=== PATIENT | female | born 1990 | race Caucasian/White ===

== ENCOUNTER 2020-03-01 14:39 | Outpatient (CLI) | payer OTHER, SELFPAY ==
[2020-03-01] VITALS (7 sets, daily range): BP systolic 143–157; BP diastolic 91–98; PULSE 115–139; TEMP 37; BMI 33.0
--- NOTE | 2020-03-01 16:09 | PC.NURSE ---
Dr. Marques called to check on pt. Informed of BP's, lab results not back yet. Informed NST was reactive, pt had a couple of contractions initially that resolved with drinking water and emptying bladder. Informed of relexes with sustained clonus. Pt denies headache, visual disturbance, epigastric/RUQ pain. No edema.
[2020-03-01 16:11] LABS: Basophils Percent Auto 0.3 % (0.2-1.2); Eosinophils Absolute Auto 0.1 K/mm3 (0-0.3); Eosinophils Percent Auto 0.7 % (0-4.4); Hematocrit 31.6 % (37.0-47.0); Hemoglobin 9.9 g/dL (12.0-15.0); Immature Granulocyte Absolute 0.04 K/mm3 (0.00-0.031); Immature Granulocyte Percent A 0.5 % (0-0.5); Lymphocytes Absolute Auto 1.09 K/mm3 (0.9-3.2); Lymphocytes Percent Auto 14.9 % (18.3-44.2); Mean Corpuscular HGB Conc 31.3 g/dl (32-36); Mean Corpuscular Hemoglobin 23.8 pg (26-34); Mean Platelet Volume 12.5 fl (7.4-10.4); Monocytes Absolute Auto 0.6 K/mm3 (0.1-0.6); Monocytes Percent Auto 8.1 % (2.6-8.5); Neutrophils Absolute Auto 5.5 K/mm3 (1.3-6.7); Neutrophils Percent Auto 75.5 % (45.5-73.1); Platelet Count Result 195 k/mm3 (150-375); Red Blood Count 4.16 M/mm3 (4.2-5.4); Red Cell Distribution Width 15.2 % (11.5-14.5); White Blood Count 7.3 K/mm3 (4.5-10.0)
[2020-03-01 16:19] LABS: Creatinine Urine 48.5 mg/dL; Total Protein Urine Random 13 mg/dL
[2020-03-01 16:27] LABS: Alanine Aminotransferase 37 U/L (4-35); Albumin Level 3.5 g/dL (3.5-5.1); Alkaline Phosphatase 212 U/L (38-126); Aspartate Amino Transferase 34 U/L (14-36); Bilirubin,Total 0.4 mg/dL (0.2-1.3); Blood Urea Nitrogen 4 mg/dL (7-17); Calcium 9.5 mg/dL (8.4-10.2); Carbon Dioxide 20 mmol/L (22-30); Chloride 107 mmol/L (98-107); Estimated CRCL calculation 153 ml/min; Estimated Glomerular Filt Rate > 60; Glucose 84 mg/dL (65-105); Potassium 4.4 mmol/L (3.4-5.0); Sodium 132 mmol/L (137-145); Uric Acid 3.3 mg/dL (2.5-7.5)
[2020-03-01 16:32] LABS: Add Urine Microscopic? YES; Amorphous Sediment Urine Few; Appearance Urine Clear (Clear); Bacteria Urine Trace /hpf; Bilirubin Urine Negative (Negative); Blood Urine Negative (Negative); Color Urine Yellow (Yellow); Glucose Urine UA Negative (Negative); Ketones Urine 1+ mg/dL (Negative); Leukocyte Esterase Ur 1+ LEU/UL (Negative); Mucus Urine Rare /lpf; Nitrate Urine Negative (Negative); Protein Urine Negative (Negative); RBC Urine 0-2 /hpf (0-2); Specific Grav Ur 1.012 (1.001-1.035); Squamous Epithelial Cell Urine Moderate /hpf (Few); Urobilinogen Urine Negative mg/dL (<2.0)
--- NOTE | 2020-03-01 16:38 | PC.NURSE ---
Dr. Marques informed of lab results, updated on BP's, and reflexes still brisk with sustained clonus. Orders received for discharge and sending pt home to start taking Procardia XL in am.
== END 2020-03-01 17:10 | disposition home or self-care (01) ==
LOC: ANHOBOP 14:47 → ANHOBPP 14:48
PROVIDERS: PCP Family Medicine; Visit Provider Obstetrics & Gynecology
DX: O13.9 Gestational [pregnancy-induced] hypertension without significant proteinuria, unspecified trimester (principal)
CPT/HCPCS: 36415; 59025; 80053; 81001; 82570; 84156; 84550; 85025; 99199

== ENCOUNTER 2020-03-12 13:31 | Outpatient (CLI) | payer OTHER, SELFPAY ==
[2020-03-12] VITALS (10 sets, daily range): BP systolic 146–155; BP diastolic 90–96; PULSE 98–101; TEMP 36.6
[2020-03-12 14:56] LABS: Basophils Percent Auto 0.3 % (0.2-1.2); Eosinophils Absolute Auto 0.1 K/mm3 (0-0.3); Eosinophils Percent Auto 0.9 % (0-4.4); Hematocrit 28.7 % (37.0-47.0); Hemoglobin 8.8 g/dL (12.0-15.0); Immature Granulocyte Absolute 0.04 K/mm3 (0.00-0.031); Immature Granulocyte Percent A 0.6 % (0-0.5); Lymphocytes Absolute Auto 1.07 K/mm3 (0.9-3.2); Mean Corpuscular HGB Conc 30.7 g/dl (32-36); Mean Corpuscular Hemoglobin 23.3 pg (26-34); Mean Corpuscular Volume 76.1 fl (80-100); Mean Platelet Volume 12.6 fl (7.4-10.4); Monocytes Absolute Auto 0.5 K/mm3 (0.1-0.6); Monocytes Percent Auto 6.7 % (2.6-8.5); Neutrophils Absolute Auto 5.1 K/mm3 (1.3-6.7); Neutrophils Percent Auto 75.5 % (45.5-73.1); Platelet Count Result 181 k/mm3 (150-375); Red Blood Count 3.77 M/mm3 (4.2-5.4); Red Cell Distribution Width 15.9 % (11.5-14.5); White Blood Count 6.7 K/mm3 (4.5-10.0)
[2020-03-12 15:00] LABS: Add Urine Microscopic? YES; Appearance Urine Clear (Clear); Bacteria Urine Trace /hpf; Bilirubin Urine Negative (Negative); Blood Urine Negative (Negative); Color Urine Yellow (Yellow); Glucose Urine UA Negative (Negative); Ketones Urine Negative (Negative); Leukocyte Esterase Ur 1+ LEU/UL (NEGATIVE); Mucus Urine Rare /lpf; Nitrate Urine Negative (Negative); Protein Urine 2+ mg/dL (Negative); RBC Urine 0-2 /hpf (0-2); Specific Grav Ur 1.026 (1.001-1.035); Squamous Epithelial Cell Urine Many /hpf (Few)
[2020-03-12 15:05] LABS: Creatinine Urine 194.9 mg/dL; Total Protein Urine Random 41 mg/dL
[2020-03-12 15:09] LABS: Alanine Aminotransferase 67 U/L (4-35); Albumin Level 3.2 g/dL (3.5-5.1); Alkaline Phosphatase 220 U/L (38-126); Aspartate Amino Transferase 44 U/L (14-36); Bilirubin,Total 0.4 mg/dL (0.2-1.3); Blood Urea Nitrogen 7 mg/dL (7-17); Calcium 8.9 mg/dL (8.4-10.2); Carbon Dioxide 22 mmol/L (22-30); Chloride 109 mmol/L (98-107); Estimated Glomerular Filt Rate > 60; Glucose 87 mg/dL (65-105); Sodium 136 mmol/L (137-145); Uric Acid 4.8 mg/dL (2.5-7.5)
[2020-03-12] MEDS: BETAMETHASONE SOD PHOS/ACETATE 30 MG/5 ML VIAL 12 MG IM (16:34)
--- NOTE | 2020-03-12 17:06 | PC.NURSE ---
1610--uPDATED DR. SILVA ON LAB RESULTS AND BP'S. FEBRUARY DC TO HOME WITH FOLLOW-UP IN OFFICE ON WEDNESDAY AND SECOND INJECTION OF BETAMETHASONE ON WEDNESDAY.
== END 2020-03-12 16:35 | disposition home or self-care (01) ==
LOC: ANHOBOP 13:38 → ANHOBPP 13:41
PROVIDERS: PCP Family Medicine; Visit Provider Obstetrics & Gynecology
DX: O13.9 Gestational [pregnancy-induced] hypertension without significant proteinuria, unspecified trimester (principal); Z3A.00 Weeks of gestation of pregnancy not specified
CPT/HCPCS: 36415; 80053; 81001; 82570; 84156; 84550; 85025; 87086; 87088; 96372; 99199; J0702

== ENCOUNTER 2020-03-13 16:25 | Outpatient (CLI) | payer OTHER, SELFPAY ==
[2020-03-13] MEDS: BETAMETHASONE SOD PHOS/ACETATE 30 MG/5 ML VIAL 12 MG IM (16:46)
== END 2020-03-13 16:26 | disposition home or self-care (01) ==
LOC: ANHOBOP 16:31
PROVIDERS: PCP Family Medicine; Visit Provider Obstetrics & Gynecology
DX: Z34.90 Encounter for supervision of normal pregnancy, unspecified, unspecified trimester (principal); Z3A.00 Weeks of gestation of pregnancy not specified
CPT/HCPCS: 96372; J0702

== ENCOUNTER 2020-03-14 14:14 | Inpatient (IN) | payer OTHER, SELFPAY ==
[2020-03-14] VITALS (84 sets, daily range): BP systolic 132–175; BP diastolic 77–110; PULSE 87–125; RESP 18; TEMP 36.8–36.9; O2SAT 98–100; BMI 32.8
[2020-03-14 15:08] LABS: Basophils Percent Auto 0.2 % (0.2-1.2); Eosinophils Percent Auto 0.1 % (0-4.4); Hematocrit 29.4 % (37.0-47.0); Hemoglobin 9.2 g/dL (12.0-15.0); Immature Granulocyte Absolute 0.15 K/mm3 (0.00-0.031); Immature Granulocyte Percent A 1.3 % (0-0.5); Mean Corpuscular HGB Conc 31.3 g/dl (32-36); Mean Corpuscular Hemoglobin 23.7 pg (26-34); Mean Corpuscular Volume 75.8 fl (80-100); Mean Platelet Volume 12.8 fl (7.4-10.4); Monocytes Absolute Auto 1.1 K/mm3 (0.1-0.6); Monocytes Percent Auto 9.3 % (2.6-8.5); Neutrophils Absolute Auto 8.8 K/mm3 (1.3-6.7); Neutrophils Percent Auto 76.1 % (45.5-73.1); Nucleated Red Blood Cells Perc 0.3 % (0.0-0.2); Platelet Count Result 214 k/mm3 (150-375); Red Blood Count 3.88 M/mm3 (4.2-5.4); Red Cell Distribution Width 16.1 % (11.5-14.5); White Blood Count 11.5 K/mm3 (4.5-10.0)
[2020-03-14 15:14] LABS: Creatinine Urine 97.4 mg/dL; Total Protein Urine Random 53 mg/dL
[2020-03-14 15:19] LABS: Add Urine Microscopic? YES; Alanine Aminotransferase 102 U/L (4-35); Albumin Level 3.5 g/dL (3.5-5.1); Alkaline Phosphatase 221 U/L (38-126); Appearance Urine Clear (Clear); Aspartate Amino Transferase 70 U/L (14-36); Bacteria Urine Trace /hpf; Bilirubin Urine Negative (Negative); Bilirubin,Total 0.4 mg/dL (0.2-1.3); Blood Urea Nitrogen 8 mg/dL (7-17); Blood Urine Negative (Negative); Calcium 9.2 mg/dL (8.4-10.2); Carbon Dioxide 20 mmol/L (22-30); Chloride 108 mmol/L (98-107); Color Urine Yellow (Yellow); Estimated Glomerular Filt Rate > 60; Glucose 97 mg/dL (65-105); Glucose Urine UA Negative (Negative); Ketones Urine Negative (Negative); Leukocyte Esterase Ur 1+ LEU/UL (Negative); Nitrate Urine Negative (Negative); Potassium 4.1 mmol/L (3.4-5.0); Protein Urine 2+ mg/dL (Negative); RBC Urine 0-2 /hpf (0-2); Sodium 136 mmol/L (137-145); Specific Grav Ur 1.018 (1.001-1.035); Squamous Epithelial Cell Urine Few /hpf (Few); Uric Acid 4.7 mg/dL (2.5-7.5); Urobilinogen Urine Negative mg/dL (<2.0); WBC Urine 0-3 /hpf
--- NOTE | 2020-03-14 16:53 | PM.IMHP ---
H&P: HPI History of Present Illness Chief complaint: elevated bp Narrative: Ana María Velasquez is a 30 year old female 2 para 1001 at 34 weeks and 6 days who presents with severe range blood pressures. She was being followed for her blood pressures. She had signs and symptoms preeclampsia. She received steroids. She denies any neurologic signs or symptoms. She denies any headache, blurry vision, epigastric pain. She denies any chest pain or shortness of breath. She denies any nausea, vomiting, fever, chills. Review of Systems Constitutional: Constitutional: Reports no additional constitutional complaints, Denies fatigue, Denies headache(s), Denies lethargy and Denies weakness Eyes: Eyes: Reports no additional eye complaints, Denies blurry vision and Denies photophobia ENT: Reports as per HPI, Denies headache(s) and Denies neck pain Cardiovascular: Cardiovascular: Denies chest pain, Denies diaphoresis, Denies leg edema, Denies palpitations and Denies dyspnea Respiratory: Respiratory: Denies hemoptysis, Denies dyspnea and Denies wheezing Gastrointestinal: Gastrointestinal: Denies abdominal pain, Denies melena, Denies bloating, Denies hematochezia, Denies nausea and Denies vomiting Genitourinary: Genitourinary: Reports no additional female genitourinary complaints Musculoskeletal: Musculoskeletal: Denies joint swelling, Denies neck pain, Denies numbness and Denies stiffness Neurologic: Denies Abnormal speech present, Denies confusion, Denies headache(s), Denies numbness and Denies weakness Psychiatric: Psychiatric: Denies anxiety, Denies confusion, Denies depression, Denies homicidal ideation and Denies suicidal ideation Endocrine: Endocrine: Denies fatigue and Denies palpitations Allergic/Immunologic: Allergic/Immunologic: Denies wheezing [facility] Surgical History Surgical History (Updated 09/22/19 @ 19:31 by BETH King) H/O LEEP History of appendectomy Social History Social History Smoking status: Never smoker Alcohol intake: never Meds Home Medications and Allergies Home Medications Medication Instructions Recorded Confirmed Type PNV cmb#95-ferrous fumarate-FA 1 tablet PO DAILY 03/01/20 03/01/20 History [] nifedipine [Procardia XL] 30 mg PO DAILY #30 tablet 03/01/20 Rx Allergies Allergy/AdvReac Type Severity Reaction Status Date / Time amoxicillin Allergy Unknown Rash Verified 03/01/20 16:32 ampicillin Allergy Unknown Rash Verified 03/01/20 16:32 Penicillins Allergy Unknown Rash Verified 03/01/20 16:32 Vital Signs Vital Signs - 24 hr 03/14/20 14:31 03/14/20 14:40 03/14/20 14:51 Pulse Rate 118 H 109 H 114 H Blood Pressure 151/105 H 158/104 H Blood Pressure [Left Arm] 151/105 H 03/14/20 15:00 03/14/20 15:15 03/14/20 15:30 Pulse Rate 117 H 117 H 105 H Blood Pressure 169/105 H 156/99 H 154/97 H Blood Pressure [Left Arm] 03/14/20 15:45 03/14/20 16:00 03/14/20 16:15 Pulse Rate 112 H 123 H 124 H Blood Pressure 152/98 H 169/110 H 175/102 H Blood Pressure [Left Arm] 03/14/20 16:30 Pulse Rate 116 H Blood Pressure 163/99 H Blood Pressure [Left Arm] Exam Const: General: healthy appearing, comfortable and no acute distress; No confusion Orientation/consciousness: No confusion Eyes: Direct Ophthalmoscopy: No photophobia Resp: Auscultation: clear to auscultation bilaterally, no rales, no rhonchi and no wheezes Cardio: Rate: regular rate Heart sounds: no click, no murmurs and no rubs GI: Inspection: non-distended GI Palp: No abdominal tenderness Auscultation: normal bowel sounds Neuro: General: No confusion Speech: No Abnormal speech present Extrem: General: normal to inspection, no pedal edema and no calf tenderness H&P: Results Labs Labs: Short CBC 03/14/20 Range/Units 14:49 WBC 11.5 H (4.5-10.0) K/mm3 Hgb 9.2 L (12.0-15.0) g/dL Hct
[2020-03-14 17:00] LABS: Glucose Point of Care 90 (65-105)
[2020-03-14] MEDS: LACTATED RINGERS 1,000 ML 75 ML IV CONT (17:12)
--- NOTE | 2020-03-14 17:15 | LDADM ---
This patient, Ana María Velasquez, was admitted to OB room 117 at 1414 and moved to Labor/Delivery/Recovery 107 on 03/14/20 at 1635. Plans for labor, pain management and were discussed with patient. Patient/family oriented to hospital policies and general routines including ID bracelet, bed and alarms, visiting hours, pain management, procedures, bathroom and other care routines, personal items, smoking policy, room service/diet and guest tray routines, security routines, and visiting hours. Patient/Family are encouraged to report perceived risks to care and to ask questions if they do not understand what they are told or what they should do. See OBIX for further documentation.
[2020-03-14] MEDS: MAGNESIUM SULF 4 GM/WATER100ML 4 GM/100 ML BAG IVPB (17:19)
[2020-03-14] MEDS: MAGNESIUM SULF 20GM/WATER500ML 500 ML 50 MG IV CONT (17:59)
[2020-03-14] MEDS: OXYTOCIN 30 UNITS/NS 500 ML 30 UNITS/500 ML BAG IV CONT (18:31)
--- NOTE | 2020-03-14 18:49 | WPDANESEPP ---
Anes - Eval Pre Procedure Procedure: Labor epidural Date/Time: 03/14/20 18:49 Surgeon: ekta Preop Diagnosis: pain during labor Pre Op Diagnosis: elevated bp Patient Data Age: 30 Gender: F Height: 1.65 m Weight: 89.6 kg Last Vital Signs Temp 36.9 C 03/14/20 18:30 Pulse 101 H 03/14/20 18:46 BP 155/98 H 03/14/20 18:46 Allergies Allergy/AdvReac Type Severity Reaction Status Date / Time amoxicillin Allergy Unknown Rash Verified 03/01/20 16:32 ampicillin Allergy Unknown Rash Verified 03/01/20 16:32 Penicillins Allergy Unknown Rash Verified 03/01/20 16:32 Home Medications Medication Instructions Recorded Confirmed Type PNV cmb#95-ferrous fumarate-FA 1 tablet PO DAILY 03/01/20 03/14/20 History [] labetalol 200 mg PO Q12H 03/14/20 03/14/20 History Laboratory Tests 03/14/20 03/14/20 03/14/20 14:49 14:49 14:49 WBC 11.5 K/mm3 H K/mm3 (4.5-10.0) RBC 3.88 M/mm3 L M/mm3 (4.2-5.4) Hgb 9.2 g/dL L g/dL (12.0-15.0) Hct 29.4 % L % (37.0-47.0) MCV 75.8 fl L fl (80-100) MCH 23.7 pg L pg (26-34) MCHC 31.3 g/dl L g/dl (32-36) RDW 16.1 % H % (11.5-14.5) Plt Count 214 k/mm3 k/mm3 (150-375) MPV 12.8 fl H fl (7.4-10.4) Immature Gran % (Auto) 1.3 % H % (0-0.5) Neut % (Auto) 76.1 % H % (45.5-73.1) Lymph % (Auto) 13.0 % L % (18.3-44.2) [place] % (Auto) 9.3 % H % (2.6-8.5) Eos % (Auto) 0.1 % % (0-4.4) Baso % (Auto) 0.2 % % (0.2-1.2) Lymph # (Auto) 1.50 K/mm3 K/mm3 (0.9-3.2) [place] # (Auto) 1.1 K/mm3 H K/mm3 (0.1-0.6) Eos # (Auto) 0.0 K/mm3 K/mm3 (0-0.3) Baso # (Auto) 0.0 K/mm3 K/mm3 (0.0-0.1) Abs Immat Gran (auto) 0.15 K/mm3 H K/mm3 (0.00-0.031) Absolute Neuts (auto) 8.8 K/mm3 H K/mm3 (1.3-6.7) Absolute Nucleated RBC 0.0 K/mm3 K/mm3 (0.0-0.012) Nucleated RBC % 0.3 % H % (0.0-0.2) Sodium 136 mmol/L L mmol/L (137-145) Potassium 4.1 mmol/L mmol/L (3.4-5.0) Chloride 108 mmol/L H mmol/L (98-107) Carbon Dioxide 20 mmol/L L mmol/L (22-30) BUN 8 mg/dL mg/dL (7-17) Creatinine 0.50 mg/dL L mg/dL (0.7-1.0) Estim Creat Clear Calc Not Reportable Estimated GFR > 60 (59 - ) Glucose 97 mg/dL mg/dL (65-105) POC Capillary Glucose Uric Acid 4.7 mg/dL mg/dL (2.5-7.5) Calcium 9.2 mg/dL mg/dL (8.4-10.2) Total Bilirubin 0.4 mg/dL mg/dL (0.2-1.3) AST 70 U/L H U/L (14-36) ALT 102 U/L H U/L (4-35) Alkaline Phosphatase 221 U/L H U/L (38-126) Total Protein 7.0 g/dL g/dL (6.3-8.2) Albumin 3.5 g/dL g/dL (3.5-5.1) Urine Color Urine Appearance Urine pH Ur Specific [place] Urine Protein Urine Glucose (UA) Urine Ketones Ur Blood (Man) Urine Nitrate Urine Bilirubin Urine Urobilinogen Leukocyte Esterase Rfl Urine RBC Urine WBC Ur Squamous Epith Cells Urine Bacteria U Random Total Protein 53 mg/dL mg/dL Urine Creatinine 97.4 mg/dL mg/dL RPR Blood Type Antibody Screen 03/14/20 03/14/20 03/14/20 14:49 14:49 14:49 WBC RBC Hgb Hct MCV MCH MCHC RDW Plt Count MPV Immature Gran % (Auto) Neut % (Auto) Lymph % (Auto) [place] % (Auto) Eos % (Auto) Baso % (Auto) Lymph # (Auto) [place] # (Auto) Eos
[2020-03-14] MEDS: LABETALOL HCL 100 MG TABLET 200 MG PO (21:02)
[2020-03-14 21:12] LABS: Glucose Point of Care 78 (65-105)
[2020-03-15] VITALS (188 sets, daily range): BP systolic 112–170; BP diastolic 29–111; PULSE 27–131; RESP 16–20; TEMP 36.5–37.6; O2SAT 88–100
[2020-03-15 02:02] LABS: Glucose Point of Care 75 (65-105)
[2020-03-15] MEDS: MAGNESIUM SULF 20GM/WATER500ML 500 ML 50 MG IV CONT (04:04)
[2020-03-15 05:55] LABS: Glucose Point of Care 94 (65-105)
--- NOTE | 2020-03-15 07:29 | PM.OBPNVD ---
OB - PN: Subj Subjective Date/time seen: 03/15/20 07:29 OB - PN: Obj Data Labs CBC & Chem 7: 03/14/20 14:49 03/14/20 14:49 Labs: Laboratory Results - last 24 hr 03/14/20 03/14/20 03/14/20 14:49 14:49 14:49 WBC 11.5 H RBC 3.88 L Hgb 9.2 L Hct 29.4 L MCV 75.8 L MCH 23.7 L MCHC 31.3 L RDW 16.1 H Plt Count 214 MPV 12.8 H Immature Gran % (Auto) 1.3 H Neut % (Auto) 76.1 H Lymph % (Auto) 13.0 L [place] % (Auto) 9.3 H Eos % (Auto) 0.1 Baso % (Auto) 0.2 Lymph # (Auto) 1.50 [place] # (Auto) 1.1 H Eos # (Auto) 0.0 Baso # (Auto) 0.0 Abs Immat Gran (auto) 0.15 H Absolute Neuts (auto) 8.8 H Absolute Nucleated RBC 0.0 Nucleated RBC % 0.3 H Sodium 136 L Potassium 4.1 Chloride 108 H Carbon Dioxide 20 L BUN 8 Creatinine 0.50 L Estim Creat Clear Calc Not Reportable Estimated GFR > 60 Glucose 97 POC Capillary Glucose Uric Acid 4.7 Calcium 9.2 Total Bilirubin 0.4 AST 70 H ALT 102 H Alkaline Phosphatase 221 H Total Protein 7.0 Albumin 3.5 Urine Color Urine Appearance Urine pH Ur Specific [place] Urine Protein Urine Glucose (UA) Urine Ketones Ur Blood (Man) Urine Nitrate Urine Bilirubin Urine Urobilinogen Leukocyte Esterase Rfl Urine RBC Urine WBC Ur Squamous Epith Cells Urine Bacteria U Random Total Protein 53 Urine Creatinine 97.4 Blood Type Antibody Screen 03/14/20 03/14/20 03/14/20 14:49 14:49 16:57 WBC RBC Hgb Hct MCV MCH MCHC RDW Plt Count MPV Immature Gran % (Auto) Neut % (Auto) Lymph % (Auto) [place] % (Auto) Eos % (Auto) Baso % (Auto) Lymph # (Auto) [place] # (Auto) Eos # (Auto) Baso # (Auto) Abs Immat Gran (auto) Absolute Neuts (auto) Absolute Nucleated RBC Nucleated RBC % Sodium Potassium Chloride Carbon Dioxide BUN Creatinine Estim Creat Clear Calc Estimated GFR Glucose POC Capillary Glucose 90 Uric Acid Calcium Total Bilirubin AST ALT Alkaline Phosphatase Total Protein Albumin Urine Color Yellow Urine Appearance Clear Urine pH 7.0 Ur Specific [place] 1.018 Urine Protein 2+ H Urine Glucose (UA) Negative Urine Ketones Negative Ur Blood (Man) Negative Urine Nitrate Negative Urine Bilirubin Negative Urine Urobilinogen Negative Leukocyte Esterase Rfl 1+ H Urine RBC 0-2 Urine WBC 0-3 Ur Squamous Epith Cells Few Urine Bacteria Trace U Random Total Protein Urine Creatinine Blood Type A Positive Antibody Screen Negative 03/14/20 03/15/20 03/15/20 21:08 01:00 05:53 WBC RBC Hgb Hct MCV MCH MCHC RDW Plt Count MPV Immature Gran % (Auto) Neut % (Auto) Lymph % (Auto) [place] % (Auto) Eos % (Auto) Baso % (Auto) Lymph # (Auto) [place] # (Auto) Eos # (Auto) Baso # (Auto) Abs Immat Gran (auto) Absolute Neuts (auto) Absolute Nucleated RBC Nucleated RBC % Sodium Potassium Chloride Carbon Dioxide BUN Creatinine Estim Creat Clear Calc Estimated GFR Glucose POC Capillary Glucose 78 75 94 Uric Acid Calcium Total Bilirubin AST ALT Alkaline Phosphatase Total Protein Albumin Urine Color Urine Appearance Urine pH Ur Specific [place] Urine Protein Urine Glucose (UA) Urine Ketones Ur Blood (Man) Urine Nitrate Urine Bilirubin Urine Urobilinogen Leukocyte Esterase Rfl Urine RBC Urine WBC Ur Squamous Epith Cells Urine Bacteria U Random Total Protein Urine Creatinine Blood Type Antibody Screen OB - PN A/P Time Spent With Patient Time: Total time spent is greater than 50% in coordinatio
[2020-03-15] MEDS: LACTATED RINGERS 1,000 ML 75 ML IV CONT ×2 (07:43→09:24)
[2020-03-15] MEDS: LABETALOL HCL 100 MG TABLET 200 MG PO ×2 (09:07→21:05)
[2020-03-15 09:41] LABS: Glucose Point of Care 82 (65-105)
[2020-03-15 09:56] LABS: Hematocrit 30.8 % (37.0-47.0); Hemoglobin 9.6 g/dL (12.0-15.0); Mean Corpuscular HGB Conc 31.2 g/dl (32-36); Mean Corpuscular Hemoglobin 23.2 pg (26-34); Mean Corpuscular Volume 74.6 fl (80-100); Mean Platelet Volume 12.1 fl (7.4-10.4); Platelet Count Result 212 k/mm3 (150-375); Red Blood Count 4.13 M/mm3 (4.2-5.4); Red Cell Distribution Width 16.2 % (11.5-14.5); White Blood Count 12.1 K/mm3 (4.5-10.0)
[2020-03-15 10:08] LABS: Alanine Aminotransferase 214 U/L (4-35); Albumin Level 3.6 g/dL (3.5-5.1); Alkaline Phosphatase 256 U/L (38-126); Aspartate Amino Transferase 135 U/L (14-36); Bilirubin,Total 0.5 mg/dL (0.2-1.3); Blood Urea Nitrogen 5 mg/dL (7-17); Calcium 7.4 mg/dL (8.4-10.2); Carbon Dioxide 20 mmol/L (22-30); Chloride 102 mmol/L (98-107); Estimated CRCL calculation 130 ml/min; Estimated Glomerular Filt Rate > 60; Glucose 85 mg/dL (65-105); Potassium 3.6 mmol/L (3.4-5.0); Sodium 133 mmol/L (137-145); Uric Acid 5.1 mg/dL (2.5-7.5)
--- NOTE | 2020-03-15 10:11 | P.PCNOB_ITS ---
OB - Delivery Note Procedure Delivery date: 03/15/20 Procedure: vaginal delivery events: Gestational Diabetes and Pre-Eclampsia Induction method: AROM and per pitocin protocol Delivery monitor: external FHT and external uterine Route of delivery: Laceration description: None Specimen: Yes Estimated blood loss (mL): 175 Anesthesia type: Epidural Disposition: other () Narrative: hx of hemorrhage after last delivery, bleeding wnl, placed 1000mcg cytotec rectally due to hx [place] Baby Date of : 03/15/20 Time of : 10:01 Weeks of gestation at delivery: 35 gender: Female Weight (pounds): 4 Weight (ounces): 15 presentation: vertex position: Right Occiput Posterior Placenta delivery description: Spontaneous cord vessel description: 3 Vessels and Clamped/Cut score one minute: 6 score five minutes: 8
[2020-03-15] MEDS: OXYTOCIN 30 UNITS/NS 500 ML 30 UNITS/500 ML BAG 125 UNITS IV CONT (10:21)
[2020-03-15] MEDS: MISOPROSTOL 200 MCG TABLET 1000 MCG (10:22)
[2020-03-15 11:20] LABS: Rapid Plasma Reagin Non-Reactive (NonReactive)
[2020-03-15] MEDS: WITCH HAZEL 40 PADS 1 PAD TOPICAL (12:34)
--- NOTE | 2020-03-15 13:00 | PC.NURSE ---
Patient transferred to room #282 per wheelchair from labor and delivery. Support person present. Oriented to unit, room, information board, rooming in, admission packet and security measures. Patient verbalizes understanding.
[2020-03-15 15:08] LABS: Magnesium 5.6 mg/dL (1.6-2.3)
[2020-03-16] VITALS (8 sets, daily range): BP systolic 136–155; BP diastolic 90–102; PULSE 78–97; RESP 16–20; TEMP 36.8–37; O2SAT 100
[2020-03-16 04:11] LABS: Hematocrit 31.5 % (37.0-47.0); Hemoglobin 9.8 g/dL (12.0-15.0); Mean Corpuscular HGB Conc 31.1 g/dl (32-36); Mean Corpuscular Hemoglobin 23.3 pg (26-34); Mean Platelet Volume 12.8 fl (7.4-10.4); Platelet Count Result 222 k/mm3 (150-375); Red Cell Distribution Width 16.1 % (11.5-14.5); White Blood Count 10.6 K/mm3 (4.5-10.0)
[2020-03-16 04:28] LABS: Alanine Aminotransferase 193 U/L (4-35); Alkaline Phosphatase 203 U/L (38-126); Aspartate Amino Transferase 90 U/L (14-36); Bilirubin,Total 0.4 mg/dL (0.2-1.3); Blood Urea Nitrogen 8 mg/dL (7-17); Calcium 7.7 mg/dL (8.4-10.2); Carbon Dioxide 23 mmol/L (22-30); Chloride 106 mmol/L (98-107); Estimated CRCL calculation 113 ml/min; Estimated Glomerular Filt Rate > 60; Glucose 77 mg/dL (65-105); Potassium 3.9 mmol/L (3.4-5.0); Sodium 133 mmol/L (137-145); Uric Acid 5.3 mg/dL (2.5-7.5)
[2020-03-16] MEDS: LABETALOL HCL 100 MG TABLET 200 MG PO ×2 (09:41→21:05)
--- NOTE | 2020-03-16 13:18 | PM.OBPNVD ---
OB - PN: Subj Subjective Date/time seen: 03/16/20 1000 OB - PN: Obj Data Labs CBC & Chem 7: 03/16/20 03:28 03/16/20 03:28 Labs: Laboratory Results - last 24 hr 03/15/20 03/16/20 03/16/20 14:52 03:28 03:28 WBC 10.6 H RBC 4.20 Hgb 9.8 L Hct 31.5 L MCV 75.0 L MCH 23.3 L MCHC 31.1 L RDW 16.1 H Plt Count 222 MPV 12.8 H Sodium 133 L Potassium 3.9 Chloride 106 Carbon Dioxide 23 BUN 8 Creatinine 0.70 Estim Creat Clear Calc 113 Estimated GFR > 60 Glucose 77 Uric Acid 5.3 Calcium 7.7 L Magnesium 5.6 H Total Bilirubin 0.4 AST 90 H ALT 193 H Alkaline Phosphatase 203 H Total Protein 6.0 L Albumin 3.0 L OB - PN A/P Plan day: 1 Plan: routine care Comments: Nurse states 0800 bp was improved. Pt did have one in the severe range yesterday evening but they seem to be improving. Will monitor throughout the day to determine if magnesium will need to be restarted or if po meds seem to work. Time Spent With Patient Time: Total time spent is greater than 50% in coordination of care (as documented) at patient's floor/unit and/or counseling patient: Time with patient: less than 15 minutes Review of Systems Review of Systems: All systems reviewed & are unremarkable except as noted in HPI and below Exam Narrative: Exam Narrative: Denies h/a, v/d, or e/p. DTR 2+ and no clonus. 1+ edema in lower ext. Lungs CTAB Heart regular and without murmur. Const: General: comfortable Resp: Effort & Inspection: normal respiratory effort Auscultation: clear to auscultation bilaterally Cardio: Rate: regular rate GI: Auscultation: normal bowel sounds Psych: Appearance: grossly normal Affect: normal affect Attitude: cooperative Judgement: Good judgement present (Psych)
[2020-03-17] VITALS (9 sets, daily range): BP systolic 121–158; BP diastolic 77–104; PULSE 66–99; RESP 15–18; TEMP 36.9; O2SAT 99
[2020-03-17] MEDS: LABETALOL HCL 100 MG TABLET 200 MG PO (09:24)
--- NOTE | 2020-03-17 11:21 | PM.OBPNVD ---
OB - PN: Subj Subjective Date/time seen: 03/17/20 11:21 OB - PN: Obj Data Labs CBC & Chem 7: 03/16/20 03:28 03/16/20 03:28 OB - PN A/P Plan day: 2 Plan: routine care Comments: BP still elevated. Spoke with Dr Bullard and we will incrase Labetalol to 400mg BID. Time Spent With Patient Time: Total time spent is greater than 50% in coordination of care (as documented) at patient's floor/unit and/or counseling patient: Review of Systems Review of Systems: All systems reviewed & are unremarkable except as noted in HPI and below Exam Narrative: Exam Narrative: Pt doing well. Denies h/a, v/d, or e/p. Const: General: comfortable Chest: Breast/axilla inspection: normal inspection of the breasts Resp: Effort & Inspection: normal respiratory effort Cardio: Rate: regular rate Psych: Appearance: grossly normal Affect: normal affect Attitude: cooperative Judgement: Good judgement present (Psych)
[2020-03-17] MEDS: LABETALOL HCL 100 MG TABLET 400 MG PO (21:01)
[2020-03-18 05:15] VITALS: BP 141/78
--- NOTE | 2020-03-18 07:44 | PM.OBPNVD ---
OB - PN: Subj Subjective Date/time seen: 03/18/20 07:44 Patient comments: no complaints, pain well controlled and tolerating diet OB - PN: Obj Data Labs CBC & Chem 7: 03/16/20 03:28 03/16/20 03:28 OB - PN A/P Plan day: 3 Plan: routine care and discharge home Comments: BP's stable on 400 of labetalol, to f/u in 3 days for bp check. given pree precautions Time Spent With Patient Time: Total time spent is greater than 50% in coordination of care (as documented) at patient's floor/unit and/or counseling patient: Exam Const: General: comfortable and no acute distress Resp: Effort & Inspection: normal respiratory effort Auscultation: no rales, no rhonchi and no wheezes Cardio: Rate: regular rate Heart sounds: no click, no murmurs and no rubs GI: GI Palp: Yes Soft to palpation and No Tenderness to palpation present (GI) Auscultation: normal bowel sounds Extrem: General: normal to inspection, no pedal edema and no calf tenderness
--- NOTE | 2020-03-18 07:47 | PM.OBDSVD ---
DS: Admitting Diagnosis Admitting Diagnosis Admitting Diagnosis: Severe pre-eclampsia, unspecified trimester DS: Discharge Diagnosis Discharge Diagnosis (1) Preeclampsia, severe: Code(s): O14.10 - Severe pre-eclampsia, unspecified trimester Status: Acute (2) 35 weeks gestation of : Code(s): Z3A.35 - 35 weeks gestation of Status: Acute OB - DS: Summary OB Procedures : PIH Mgmt OB Procedures Intrapartum: Spontaneous Vag Delivery OB Procedures: : None Peripartum Data Infant Delivery Method: Natural Vaginal Episiotomy description: None Status at Discharge Functional status at discharge: independent ambulation Time Spent with Patient Time attestation: Total time spent providing and/or coordinating discharge services: DS: Data Data Completed and Pending Pending studies at discharge: Pending at discharge 03/15/20 10:45 Surgical [PTH] Routine Discharge Plan Discharge Attending physician on discharge: Rachel Bullard Discharging Clinician: Rachel Bullard Patient Disposition: Home Health Service Activity: pelvic rest Diet: regular Patient Instructions: Antibiotic Form Stand Alone Forms: General Discharge Information Follow-up/Referrals: Rachel Bullard MD [Physician] - Discharge Medications: Continued labetalol 200 mg Tablet 200 mg PO Q12H RF: 0 PNV cmb#95-ferrous fumarate-FA [] 28 mg iron- 800 mcg Tablet 1 tablet PO DAILY RF: 0 Date of admission: 03/14/20 14:14 Primary Care Provider: Lennox,Lizabeth Valentine Admitting Provider: Rachel Bullard Attending physician on admission: Rachel Bullard
[2020-03-18 08:15] VITALS: PULSE 92; RESP 16; TEMP 36.7; O2SAT 100
[2020-03-18 08:16] VITALS: PULSE 92
[2020-03-18] MEDS: LABETALOL HCL 100 MG TABLET 400 MG PO (08:16)
--- NOTE | 2020-03-18 10:22 | PC.NURSE ---
Patient viewed the discharge video Mother & Baby Care, The First Two Weeks . Patient was given the opportunity and encouraged to ask questions. Patient verbalized understanding of information shared and has been given the mother/baby guide for home reference.
[2020-03-19 07:59] VITALS: BP 136/84; PULSE 98; RESP 20; TEMP 36.8; O2SAT 99
== END 2020-03-18 11:34 | disposition home or self-care (01) | DRG 807 ==
LOC: ANHOBOP 14:17 → ANHLDR 16:42 → ANHOB2 03-15 13:03
PROVIDERS: Advanced Practice Midwife; Admitting Provider Obstetrics & Gynecology; PCP Family Medicine; Visit Provider Obstetrics & Gynecology
DX: O24.429 Gestational diabetes mellitus in childbirth, unspecified control (principal); Z37.0 Single live birth; O14.14 Severe pre-eclampsia complicating childbirth; Z3A.35 35 weeks gestation of pregnancy
CPT/HCPCS: 36415; 80053; 81001; 82570; 83735; 84156; 84550; 85025; 85027; 86592; 86850; 86900; 86901; 88307; A9270; J2590; J2795; J3370; J3475; J7120